=== PATIENT | female | born 1985 | race Caucasian/White ===

== ENCOUNTER 2019-06-10 07:40 | Outpatient (CLI) | payer BC ==
--- NOTE | 2019-06-10 08:54 | MRI ---
Brain MRI with and without contrast: 06/10/2019 COMPARISON: None HISTORY: Numbness, paresthesias TECHNIQUE: Multiplanar multisequence MR imaging of the brain obtained without and with contrast FINDINGS: The diffusion weighted imaging demonstrates no evidence for acute infarction. The axial gra dient echo imaging demonstrates no evidence for intracranial hemorrhage. There is mucosal thickening involving the alveolar recess of bilateral maxillary sinuses. Arterial flow voids at axial level of skull base appear grossly unremarkable on the T2-weighted imagi ng. No midline shift or mass effect. No ventricular enlargement. There is a focus of increased T2/FLAIR signal within the deep white matter of the right frontal lobe measuring 3-4 mm. There is a focal area of subcortical white matter increased T2 and FLAIR signal within the posterior medial aspect of the temporal lobe superiorly on the left which measures approxi mately 5-6 mm. The postcontrast imaging demonstrates vague enhancement associated with this subcortical white matter focus of abnormal signal within the temporal lobe on the left. In the proper clinical setting this could be related to active demyelination. No additional focus of abnormal enhancement is identified within the brain parenchyma. No additional white matter disease is apparent . IMPRESSION: 2 subcentimeter foci of abnormal signal intensity as detailed above, one within the deep white matter of the right frontal lobe and one involving the subcortical white matter of the left temporal lobe. The focus of abnormal signal intensity within the left temporal lobe demonstrates post contrast enhancement. Etiology is uncertain. Findings could be related to demyelinating disease/multiple sclerosis and associated active demyelination. Small vessel disease/vasculitis with subacute infarction in left temporal region is a possibility as well. Clinical correlation and consideration for lumbar puncture suggested. In addition, short-term follow-up brain MRI with and wit hout contrast advised in 4-6 weeks. EFRA T
[2019-06-10] MEDS ORDERED: Magnevist 469MG/ML 20 ML VIAL ONE (14:39)
== END 2019-06-10 07:41 | disposition home or self-care (01) ==
LOC: BICMRI 07:40
PROVIDERS: ATTEND Psychiatry & Neurology Neurology
DX: R20.2 Paresthesia of skin (principal); R90.89 Other abnormal findings on diagnostic imaging of central nervous system
CPT/HCPCS: 70553; A9579

== ENCOUNTER 2019-06-17 08:20 | Outpatient (CLI) | payer BC ==
--- NOTE | 2019-06-17 10:51 | ULT ---
LIMITED RIGHT BREAST ULTRASOUND: DATE: 06/17/2019. PROVIDED CLINICAL HISTORY: Followup right breast abnormality. FINDINGS: Limited sonographic interrogation was performed of the right breast in the region of clinical concern . Per patient history, prior ultrasound (which is not available) demonstrated a cyst in this regio n. The sonographic appearance of the periareolar tissues in the region of clinical concern is normal on the current study. IMPRESSION: BIRADS category 1 - negative. Negative imaging findings should not preclude further evaluation of a clinically suspicious area. The patient is referred back to her clinician. POS: OFF
== END 2019-06-17 08:21 | disposition home or self-care (01) ==
LOC: BICMAMMO 08:20
PROVIDERS: ATTEND Family Medicine
DX: N60.01 Solitary cyst of right breast (principal)
CPT/HCPCS: 77066; G0279

== ENCOUNTER 2019-06-27 10:34 | Outpatient (CLI) | payer BC ==
--- NOTE | 2019-06-27 10:49 | RAD ---
Exam: 2 views lumbar spine HISTORY: Right foot paresthesia. Bilateral foot numbness. FINDINGS: 5 lumbar type vertebra. Lumbar spine vertebral body height is maintained. No fracture. No s pondylolisthesis or spondylolysis. Preserved disc space height. Visualized bony pelvis and sacrum are unremarkable. IMPRESSION: Unremarkable 2 views lumbar spine.
== END 2019-06-27 10:35 | disposition home or self-care (01) ==
LOC: BICRAD 10:34
PROVIDERS: ATTEND Psychiatry & Neurology Neurology
DX: R20.2 Paresthesia of skin (principal)
CPT/HCPCS: 72100

== ENCOUNTER 2019-07-15 09:01 | Outpatient (CLI) | payer BC ==
--- NOTE | 2019-07-15 11:05 | MRI ---
MRI Lumbar Spine Noncontrast: HISTORY: Low back pain with numbness and tingling in bilateral feet. COMPARISON: None FINDINGS: The visualized retroperitoneal structures demonstrate a normal appearance. Conus medullaris is normal in morphology and terminates at the L2-3 level. A few scattered Schmorl's nodes are seen in the lower thoracic and upper lumbar spine. Normal signal intensity is demonstrated in the bone marrow. L1-2: Mild broad-based disc osteophyte complex with slight effacement of the ventral aspect of the th ecal sac. Neural foramina are patent. L2-3: Minimal disc osteophyte complex. Central spinal canal and neural foramina are patent. L3-4: There is no disc bulge or disc herniation. Central spinal canal and neural foramina are patent. L4-5: Minimal disc osteophyte complex. Central spinal canal is patent, and there is no significant na rrowing of the neural foramina. L5-S1: Mild central disc protrusion. Central spinal canal and neural foramina are patent. Facet degen erative changes are present at this level IMPRESSION: Mild degenerative changes in lumbar spine. There is no significant central canal or neural foraminal narrowing at any level.
== END 2019-07-15 09:02 | disposition home or self-care (01) ==
LOC: BICMRI 09:01
PROVIDERS: ATTEND Psychiatry & Neurology Neurology
DX: M54.5 Low back pain (principal); R20.2 Paresthesia of skin; M47.816 Spondylosis without myelopathy or radiculopathy, lumbar region
CPT/HCPCS: 72148

== ENCOUNTER 2019-10-30 12:43 | Emergency (ER) | payer BC ==
--- NOTE | 2019-10-30 13:22 | CT ---
EXAM: CT brain without contrast HISTORY: Headache and blurry vision COMPARISON: None TECHNIQUE: Multiple contiguous axial images were obtained and a CT of the brain without contrast. FINDINGS: The brain is normal in morphology and attenuation without focal lesions or confluent areas of infarction. There is no evidence of hydrocephalus, intracranial hemorrhage, or extra-axial fluid collection. The calvarium and overlying soft tissues are unremarkable. The visualized paranasal sinuses and masto id air cells are well aerated. IMPRESSION: No evidence of acute intracranial abnormality
[2019-10-30] MEDS ORDERED: Ondansetron ODT 4 MG TAB ONE (13:56)
[2019-10-30] MEDS ORDERED: Acetaminophen 500 MG TAB ONE (13:56)
[2019-10-30] MEDS ORDERED: Ketorolac Tromethamine 30 MG/ML VIAL ONE (13:56)
== END 2019-10-30 14:22 | disposition home or self-care (01) ==
LOC: ERS 12:43
DX: R51 Headache (principal); I10 Essential (primary) hypertension
CPT/HCPCS: 70450; 96374; J1885; Q0162

== ENCOUNTER 2019-11-01 16:42 | Emergency (ER) | payer BC, OTHER ==
[2019-11-02 14:10] LABS: SARS-CoV-2 MS2 Positive; SARS-CoV-2 N Gene Negative; SARS-CoV-2 S Gene Negative; SARS-CoV-2 orf1ab Negative
== END 2019-11-01 17:55 | disposition home or self-care (01) ==
LOC: ERS 16:42
DX: R19.7 Diarrhea, unspecified (principal); Z20.828 Contact with and (suspected) exposure to other viral communicable diseases; H54.7 Unspecified visual loss
CPT/HCPCS: 87635; 99284; U0003

== ENCOUNTER 2019-11-03 15:33 | Day surgery (SDC) | payer BC ==
[2019-11-03] MEDS ORDERED: Sodium Chloride 0.9% 20 ML ONE (15:43)
[2019-11-03] MEDS ORDERED: methylPREDNISolone Sod Succ 1,000 MG in Sodium Chloride 0.9% 100 ML IVPB SCH (16:00)
[2019-11-03 16:10] VITALS: BP 140/80; TEMP 98.6
== END 2019-11-03 17:50 | disposition home or self-care (01) ==
LOC: ONC/OP 15:33
PROVIDERS: ATTEND Ophthalmology
DX: H46.11 Retrobulbar neuritis, right eye (principal); Z88.8 Allergy status to other drugs, medicaments and biological substances
CPT/HCPCS: 96365; J2930; J3490

== ENCOUNTER 2019-11-23 09:00 | Emergency (ER) | payer BC, OTHER ==
[2019-11-23] MEDS ORDERED: Iopamidol 370 76% 100 ML VIAL ONE (09:24)
[2019-11-23] MEDS ORDERED: Ketorolac Tromethamine 30 MG/ML VIAL ONE (10:15)
[2019-11-23 10:22] LABS: #Eosinphils 0.1 thou/uL (0.0-0.7); #Lymphocytes 1.3 thou/uL (1.20-3.40); #Monocytes 0.5 thou/uL (0.11-0.59); #Neutrophils 6.1 thou/uL (1.40-6.50); %Basophils 0.4 % (0.0-1.0); %Eosinophils 0.8 % (0.0-10.0); %Lymphocytes 15.9 % (21.0-51.0); %Monocytes 6.5 % (0.0-10.0); %Neutrophils 76.4 % (42.0-75.0); Hemoglobin 13.7 g/dL (12.0-16.0); Mean Corpuscular HGB CONC 32.5 g/dL (32.0-36.0); Mean Corpuscular Hemoglobin 29.9 pg (27.0-31.0); Mean Corpuscular Volume 92.1 fL (78.0-98.0); Platelet Count 158 thou/uL (130-400); RBC Distribution Width 11.8 % (11.5-14.5); Red Blood Cell (RBC) Count 4.58 mill/uL (4.20-5.40)
[2019-11-23 10:24] LABS: Bilirubin Negative (Negative); Blood, Urine Negative (Negative); Clarity Clear (Clear); Glucose, Urine (Dipstick) Normal (Negative); Ketone, Urine Negative (Negative); Leukocyte Negative Leu/uL (Negative); Nitrite Negative (Negative); Protein, Urine (Dipstick) 20 mg/dL (Neg-Trace); Urobilinogen Normal mg/dL (Less than 2); pH, Urine 6.5 (5.0-9.0)
[2019-11-23 10:30] LABS: Pregnancy Test - Urine (BHCG) Negative (Negative); Pregu Control Background? CLEAR/WHITE (CLR/WHITE); Pregu Control Bar Appear? YES (CONTROL BAR)
[2019-11-23 10:50] LABS: ALT (SGPT) 14 U/L (8-55); AST (SGOT) 12 U/L (5-34); Albumin 4.4 g/dL (3.5-5.0); Alkaline Phosphatase 48 U/L (40-110); Anion Gap 11 mmol/L (10-20); BUN (Urea Nitrogen) 13 mg/dL (7.0-18.7); Bilirubin, Total 3.2 mg/dL (0.2-1.2); Calc. Creatinine Clearance 0 mL/min (70-130); Calcium 8.8 mg/dL (7.8-10.44); Carbon Dioxide 25 mmol/L (22-29); Chloride 107 mmol/L (98-107); Estimated GFR-MDRD Greater than 90; Globulin 2.8 g/dL (2.4-3.5); Glucose 90 mg/dL (70-105); Lipase 17 U/L (8-78); Potassium 4.2 mmol/L (3.5-5.1); Protein, Total 7.2 g/dL (6.0-8.3); Sodium 139 mmol/L (136-145)
--- NOTE | 2019-11-23 11:09 | CT ---
CT Abdomen Pelvis W Con HISTORY: 2 days of abdominal pain with fever and loss of appetite. Patient is known the right lower q uadrant COMPARISON: None. FINDINGS: The lung bases are clear. The liver, spleen, pancreas, adrenal glands and left kidney appear normal. There is a 6 mm low-density lesion in the right renal cortex, likely cyst. No calcified gallstones are seen. No free air, free fluid or lymphadenopathy seen in the abdomen or pelvis. An abnormal appendix is not visualized. Uterus and ovaries are present. There is a 15 mm corpus luteal cyst in the right ovary. Bony structur es are unremarkable. IMPRESSION: Right ovarian corpus luteal cyst.
--- NOTE | 2019-11-23 13:08 | ULT ---
TRANSABDOMINAL AND TRANSVAGINAL PELVIC ULTRASOUND WITH GRAYSCALE, COLOR-FLOW AND SPECTRAL DOPPLER LELA GING: HISTORY:Pelvic pain, concern for torsion FINDINGS: Uterus: 8.2 x 4.3 x 5.6cm Endometrium: 10 mm in thickness Right ovary: 3.2 x 2.9 x 2.9cm Left ovary: 2.4 x 1.6 x 1.5 cm No uterine mass or endometrial fluid or intrauterine gestational sac is seen. Flow is demonstrated to both ovaries. No adnexal mass or free fluid in the cul-de-sac is identified. IMPRESSION: Unremarkable exam
== END 2019-11-23 14:10 | disposition home or self-care (01) ==
LOC: ERS 09:00
DX: N83.11 Corpus luteum cyst of right ovary (principal); Z79.899 Other long term (current) drug therapy
CPT/HCPCS: 74177; 76856; 80053; 81003; 81025; 83690; 85025; 94760; 96361; 96374; J1885; Q9967

== ENCOUNTER 2019-12-02 14:36 | Outpatient (CLI) | payer BC ==
--- NOTE | 2019-12-02 15:42 | MRI ---
Exam: MRI cervical spine without contrast HISTORY: Optic neuritis. Evaluate for possible abnormal lesion in the cervical cord.. COMPARISON: None FINDINGS: Appropriate T1 marrow signal intensity of the cervical vertebra. There is slight reversal of cervica l lordosis centered at the C4 level. Cervical spine vertebral body heights are maintained. There is no fracture. No significant STIR hyperintensity to suggest vertebral body edema or ligamentous injury . Visualized brain parenchyma, cervicomedullary junction, cervical cord and the upper thoracic cord hav e a normal size and signal intensity. No T2 hyperintensities in the cord. No cord expansion or cord malacia. . Spondylolisthesis: C2-C3: 1.1 mm of anterolisthesis C2-C3: No significant central canal stenosis or significant neural foraminal narrowing C3-C4: Mild loss of disc space height. Broad-based discussed by complex abuts the thecal sac. Mild ce ntral canal stenosis. Bilaterally, neural foramina are patent C4-C5: Mild loss of disc space height. Broad-based discussed by complex abuts the thecal sac. Minimal deformity of the midline cervical cord. Mild central canal stenosis. Right neural foramen is patent. Mild left foraminal narrowing due to uncovertebral hypertrophy C5-C6: Broad-based discussed by complex abuts the thecal sac. Subarachnoid space is maintained. Minim al deformity of the right hemicord. Mild central canal stenosis. Bilaterally, neural foramina are patent C6-C7: No significant posterior disc abnormality. No significant central canal stenosis or significan t neural foraminal narrowing C7-T1: No significant posterior disc abnormality. No significant central canal stenosis or significan t neural foraminal narrowing IMPRESSION: 1. Multilevel degenerative changes of the cervical spine as detailed above. 2. No cord signal abnormality. Transcribed Date/Time: 12/02/2019 3:48 PM
--- NOTE | 2019-12-02 16:34 | MRI ---
Exam: Thoracic spine MRI without contrast HISTORY: Optic neuritis. Evaluate for thoracic cord lesions COMPARISON: None FINDINGS: Appropriate T1 marrow signal intensity of the thoracic vertebra. Thoracic spine vertebral b chance height is maintained. No fracture. No significant STIR hyperintensity to suggest vertebral body edema or ligamentous injury. Multiple chronic Schmorl's nodes are noted throughout the mid and distal thoracic spine. Appropriate signal intensity visualized paraspinal muscles, mediastinum, lung parenchyma and solid or ashish. The thoracic cord has a normal size and signal intensity. No cord malacia, cord expansion or cord atr ophy. Throughout the thoracic spine, neural foramina are patent. No significant central canal stenosis thro ughout the thoracic spine IMPRESSION: 1.No significant central canal stenosis or significant neural foraminal narrowing throughout the thor acic spine. 2. No cord signal abnormality..
== END 2019-12-02 14:37 | disposition home or self-care (01) ==
LOC: BICMRI 14:36
PROVIDERS: ATTEND Psychiatry & Neurology Neurology
DX: H46.9 Unspecified optic neuritis (principal); M47.812 Spondylosis without myelopathy or radiculopathy, cervical region
CPT/HCPCS: 72141; 72146

== ENCOUNTER 2019-12-12 07:15 | Day surgery (SDC) | payer BC ==
[2019-12-09 12:23] VITALS: BMI 27.1
[2019-12-12 07:47] LABS: BHCG - Serum Negative (NEGATIVE); Pregs Control Background? CLEAR/WHITE (CLR/WHITE); Pregs Control Bar Appear? YES (CONTROL BAR)
[2019-12-12 08:41] VITALS: BP 131/80; TEMP 98.2
[2019-12-12 09:53] LABS: CSF Source CSF; Clarity Clear (Clear); Tube # 4
--- NOTE | 2019-12-12 12:35 | RAD ---
FLUOROSCOPICALLY GUIDED LUMBAR PUNCTURE: DATE: 12/12/2019 HISTORY: 34-year-old female with paresthesia of right foot R20.2, optic neuritis H 46.9, and fatigue, unspecif ied type R 53.83. LT requested to rule out multiple sclerosis. TECHNIQUE: Signed informed consent obtained. Patient placed prone on fluoroscopy table. Skin of lower back prepa red and draped in usual sterile fashion. 25-gauge needle used to apply buffered lidocaine superficially and deeply. Level selected:L2-3. Approach:right paramedian interlaminar. 22-gauge spinal needle advanced into spinal canal under brief, intermittent fluoroscopy. Upon return of CSF, 11.5 mL of CSF collected and placed into 4 separate vials. Spinal needle was removed. Patient tolerated procedure well. No complications. Total fluoroscopy time:0.6 minutes. Dose area product:80.4 uGy*m^2. IMPRESSION: Successful lumbar puncture:11.5 mL cerebrospinal fluid sent to laboratory for analysis.
[2019-12-15 14:14] LABS: CSF IgG Index 0.6 (0.0-0.7); CSF IgG Synthesis Rate -2.3 mg/day (-9.9 TO +3.3); IgG/Alb CSF 0.12 (0.00-0.25)
== END 2019-12-12 10:15 | disposition home or self-care (01) ==
LOC: RAD 07:15
PROVIDERS: ATTEND Psychiatry & Neurology Neurology
PROC: 009U3ZX Drainage of Spinal Canal, Percutaneous Approach, Diagnostic (ICD-10-PCS; principal; 2019-12-12)
DX: H46.9 Unspecified optic neuritis (principal); R20.2 Paresthesia of skin; R53.83 Other fatigue; R01.1 Cardiac murmur, unspecified; Z79.899 Other long term (current) drug therapy; Z88.8 Allergy status to other drugs, medicaments and biological substances
CPT/HCPCS: 62270; 82040; 82042; 82784; 83916; 84157; 84703; 89051

== ENCOUNTER 2020-10-10 14:46 | Outpatient (CLI) | payer BC | END 2020-10-10 14:47 | disposition home or self-care (01) | LOC: BICMAMMO 14:46 | PROVIDERS: ATTEND Family Medicine | DX: N64.4 Mastodynia (principal); N63.10 Unspecified lump in the right breast, unspecified quadrant; Z80.3 Family history of malignant neoplasm of breast | CPT/HCPCS: 77066; G0279 ==

== ENCOUNTER 2020-12-14 14:52 | Outpatient (CLI) | payer BC ==
[2020-12-14 16:06] LABS: BHCG - Serum Negative (NEGATIVE); Pregs Control Background? CLEAR/WHITE (CLR/WHITE); Pregs Control Bar Appear? YES (CONTROL BAR)
[2020-12-14 16:33] LABS: #Eosinphils 0.3 10x3/uL (0.0-0.5); #Monocytes 0.4 10x3/uL (0.0-1.1); #Neutrophils 5.2 10x3/uL (1.5-8.4); %Basophils 0.5 % (0.0-2.0); %Eosinophils 3.3 % (0.0-6.0); %Monocytes 5.6 % (0.0-10.0); %Neutrophils 66.3 % (40.0-75.0); Hemoglobin 12.7 g/dL (12.0-15.5); Mean Corpuscular HGB CONC 33.7 g/dL (32.0-36.0); Mean Corpuscular Hemoglobin 30.1 pg (27.0-33.0); Mean Corpuscular Volume 89.3 fl (81.6-98.3); Mean Platelet Volume 11.8 fl (7.4-10.4); Platelet Count 201 10x3/uL (150-450); RBC Distribution Width 11.9 % (11.5-14.5); Red Blood Cell (RBC) Count 4.22 10x6/uL (3.90-5.03); White Blood Cell (WBC) Count 7.9 10x3/uL (3.5-10.5)
[2020-12-15 19:32] LABS: SARS-CoV-2 PCR by NAA Not Detected (NotDetected)
== END 2020-12-14 14:53 | disposition home or self-care (01) ==
LOC: LABBT 14:52
PROVIDERS: ATTEND Orthopaedic Surgery Hand Surgery
DX: Z01.812 Encounter for preprocedural laboratory examination (principal); M65.311 Trigger thumb, right thumb; M65.312 Trigger thumb, left thumb; Z20.822 Contact with and (suspected) exposure to COVID-19
CPT/HCPCS: 84703; 85025; U0003; U0005

== ENCOUNTER 2021-03-25 12:44 | Outpatient (CLI) | payer BC | END 2021-03-25 12:45 | disposition home or self-care (01) | LOC: ULT 12:44 | PROVIDERS: ATTEND Registered Nurse Emergency | DX: R10.11 Right upper quadrant pain (principal); R17 Unspecified jaundice | CPT/HCPCS: 76705 ==

== ENCOUNTER 2021-03-27 11:55 | Outpatient (CLI) | payer BC ==
[2021-03-27 13:14] LABS: #Eosinphils 0.5 10x3/uL (0.0-0.5); #Monocytes 0.5 10x3/uL (0.0-1.1); #Neutrophils 4.6 10x3/uL (1.5-8.4); %Basophils 0.4 % (0.0-2.0); %Lymphocytes 27.3 % (18.0-47.0); %Monocytes 6.2 % (0.0-10.0); %Neutrophils 59.8 % (40.0-75.0); Hemoglobin 12.6 g/dL (12.0-15.5); Mean Corpuscular HGB CONC 32.6 g/dL (32.0-36.0); Mean Corpuscular Hemoglobin 29.6 pg (27.0-33.0); Mean Corpuscular Volume 90.8 fl (81.6-98.3); Mean Platelet Volume 11.8 fl (7.4-10.4); Platelet Count 187 10x3/uL (150-450); Red Blood Cell (RBC) Count 4.25 10x6/uL (3.90-5.03); White Blood Cell (WBC) Count 7.7 10x3/uL (3.5-10.5)
[2021-03-27 13:39] LABS: BHCG - Serum Negative (NEGATIVE); Pregs Control Background? CLEAR/WHITE (CLR/WHITE); Pregs Control Bar Appear? YES (CONTROL BAR)
[2021-03-28 11:58] LABS: SARS-CoV-2 PCR by NAA Not Detected (NotDetected)
== END 2021-03-27 11:56 | disposition home or self-care (01) ==
LOC: LABBT 11:55
PROVIDERS: ATTEND Orthopaedic Surgery Hand Surgery
DX: Z01.812 Encounter for preprocedural laboratory examination (principal); M65.311 Trigger thumb, right thumb; M65.312 Trigger thumb, left thumb; Z20.822 Contact with and (suspected) exposure to COVID-19
CPT/HCPCS: 84703; 85025; U0003; U0005

== ENCOUNTER 2021-04-01 11:26 | Day surgery (SDC) | payer BC ==
[2021-03-29 10:13] VITALS: BMI 27.1
[2021-04-01] MEDS ORDERED: ceFAZolin 2 GM/DEX 5% 100 ML BAG ONE (12:36)
[2021-04-01] MEDS ORDERED: Bupivacaine PF 0.5% 30 ML VIAL ONE (13:09)
[2021-04-01] MEDS ORDERED: methylPREDNISolone Acetate 40 mg/ml Vial ONE (13:09)
[2021-04-01] MEDS ORDERED: Betamet Acet/Betamet Na Ph 30 MG/5 ML VIAL ONE (13:09)
[2021-04-01] MEDS ORDERED: Bacitracin Zinc Ointment 30 gm TUBE ONE (13:09)
[2021-04-01] MEDS ORDERED: Fentanyl 100 MCG/2 ML VIAL ONE (13:24)
[2021-04-01] MEDS ORDERED: Midazolam HCl 2 mg/2 ml Vial ONE (13:24)
[2021-04-01] MEDS ORDERED: Dexamethasone 20 MG/5 ML VIAL ONE (14:08)
[2021-04-01] MEDS ORDERED: PROPOFOL 200 MG/20 ML VIAL ONE (14:08)
[2021-04-01] MEDS ORDERED: Lidocaine 1% PF 5 ML VIAL ONE (14:08)
[2021-04-01] MEDS ORDERED: Ondansetron PF 4 MG/2 ML Vial ONE (14:08)
[2021-04-01] MEDS ORDERED: Ketorolac Tromethamine 30 MG/ML VIAL ONE (15:23)
== END 2021-04-01 16:58 | disposition home or self-care (01) ==
LOC: SDC 11:26
PROVIDERS: ATTEND Orthopaedic Surgery Hand Surgery
PROC: 0LN80ZZ Release Left Hand Tendon, Open Approach (ICD-10-PCS; principal; 2021-04-01)
DX: M65.312 Trigger thumb, left thumb (principal)
CPT/HCPCS: J0702; J1100; J1885; J2250; J2405; J2704; J2920; J3010; S0020

== ENCOUNTER 2021-06-28 20:05 | Emergency (ER) | payer BC ==
[2021-06-28] MEDS ORDERED: methylPREDNISolone Sod Succ 1 GM in Sodium Chloride 0.9% 250 ML 250 ML IVPB SCH (21:30)
== END 2021-06-28 23:58 | disposition home or self-care (01) ==
LOC: ERS 20:05
DX: H46.9 Unspecified optic neuritis (principal)
CPT/HCPCS: 96365; J2930; J7050

== ENCOUNTER 2021-06-29 21:29 | Emergency (ER) | payer BC ==
[2021-06-29] MEDS ORDERED: methylPREDNISolone Sod Succ 1 GM in Sodium Chloride 0.9% 250 ML 250 ML IVPB SCH (22:00)
== END 2021-06-29 23:33 | disposition home or self-care (01) ==
LOC: ER/OP 21:29
DX: Z51.89 Encounter for other specified aftercare (principal); G35 Multiple sclerosis
CPT/HCPCS: 96365; J2930; J7050

== ENCOUNTER 2021-06-30 21:00 | Emergency (ER) | payer BC ==
[2021-06-30] MEDS ORDERED: methylPREDNISolone Sod Succ 1 GM in Sodium Chloride 0.9% 250 ML 250 ML IVPB SCH (21:45)
== END 2021-06-30 23:24 | disposition home or self-care (01) ==
LOC: ER/OP 21:00
DX: Z51.89 Encounter for other specified aftercare (principal); G35 Multiple sclerosis
CPT/HCPCS: 96374; J2930; J7050

== ENCOUNTER 2021-10-09 06:59 | Outpatient (CLI) | payer BC | END 2021-10-09 07:00 | disposition home or self-care (01) | LOC: BICULT 06:59 | PROVIDERS: ATTEND Family Medicine | DX: R10.84 Generalized abdominal pain (principal) | CPT/HCPCS: 76705 ==

== ENCOUNTER 2021-11-01 07:38 | Outpatient (CLI) | payer BC ==
[2021-11-01] MEDS ORDERED: Iopamidol-370 76% 500 ML 1 ML ONE (12:02)
== END 2021-11-01 07:39 | disposition home or self-care (01) ==
LOC: BICCT 07:38
PROVIDERS: ATTEND Family Medicine
DX: R10.84 Generalized abdominal pain (principal); M62.08 Separation of muscle (nontraumatic), other site
CPT/HCPCS: 74160; Q9967